=== PATIENT | male | born 1990 | race Caucasian/White ===

== ENCOUNTER 2019-01-17 15:04 | Emergency (ER) | payer SELFPAY ==
[2019-01-17 16:06] VITALS: BP 128/67; PULSE 78
[2019-01-17] MEDS ORDERED: Bacitracin Oint 1 GM U/D Packet TOP ONE (16:36)
[2019-01-17] MEDS ORDERED: Lidocaine 1% 30 ML SDV INJECT ONE (16:36)
--- NOTE | 2019-01-17 16:58 | EDM.PDOCBH ---
Scribed by Yamilet Page 01/17/19 0427 for Zeb Ravi PA ED HPI GENERAL MEDICAL PROBLEM - General Chief Complaint: Behavioral/Psych Stated Complaint: CUT LEFT WRIST Time Seen by Provider: 01/17/19 16:30 Source of Information: Reports: Patient, RN, RN Notes Reviewed History Limitations: Reports: No Limitations - History of Present Illness INITIAL COMMENTS - FREE TEXT/NARRATIVE: Patient presents to ER with the complaint of feeling down and unwanted. He feels he is being ignore and treated like crap. He also states he is being ridiculed and his past thrown in his face. All of his activities are wrong. This is his fourth year anniversary. He used pot yesterday and meth 3 days ago. He took a utility knife and sliced his left wrist (30 minutes prior to arrival) . Onset: Today Duration: Getting Worse Location: Reports: Generalized Severity: Moderate Improves with: Reports: None Worsens with: Reports: None Associated Symptoms: Reports: No Other Symptoms - Related Data Allergies Allergy/AdvReac Type Severity Reaction Status Date / Time No Known Allergies Allergy Verified 01/17/19 17:25 Home Meds: Home Meds cloNIDine [Catapres] 0.1 mg PO BID 01/17/19 [History] Past Medical History - Past Health History Medical/Surgical History: Denies Medical/Surgical History HEENT History: Reports: Other (See Below) Other HEENT History: Pt reports surgery to nose for fracture. Psychiatric History: Reports: ADHD, Anxiety, Depression, Suicide Attempt Social & Family History - Family History Family Medical History: Noncontributory - Tobacco Use Smoking Status *Q: Current Every Day Smoker Years of Tobacco use: 10 Packs/Tins Daily: 0.5 - Caffeine Use Caffeine Use: Reports: Soda Caffeine Use Comment: 12 pack daily. - Recreational Drug Use Recreational Drug Use: Yes Recreational Drug Type: Reports: Marijuana/Hashish, Methamphetamine - Living Situation & Occupation Living situation: Reports: with Significant Other Occupation: Employed ED ROS GENERAL - Review of Systems Review Of Systems: ROS reveals no pertinent complaints other than HPI. ED EXAM, BEHAVIORAL HEALTH - Physical Exam Exam: See Below Exam Limited By: No Limitations General Appearance: Alert, WD/WN, No Apparent Distress Eye Exam: Bilateral Eye: EOMI, Normal Inspection, PERRL Ears: Normal External Exam, Normal Canal, Hearing Grossly Normal, Normal TMs Nose: Normal Inspection, Normal Mucosa, No Blood Throat/Mouth: Normal Inspection Head: Atraumatic, Normocephalic Neck: Normal Inspection, Supple, Non-Tender, Full Range of Motion Respiratory/Chest: No Respiratory Distress, Lungs Clear, Normal Breath Sounds, No Accessory Muscle Use, Chest Non-Tender Cardiovascular: Normal Peripheral Pulses, Regular Rate, Rhythm, No Edema, No Gallop, No JVD, No Murmur, No Rub GI/Abdominal: Normal Bowel Sounds, Soft, Non-Tender, No Organomegaly, No Distention, No Abnormal Bruit, No Mass (Male) Exam: Deferred Rectal (Males) Exam: Deferred Back Exam: Normal Inspection, Full Range of Motion, NT Extremities: Other (See skin below) Neurological: Alert Skin Exam: Other (left wrist laceratgion 2.0cm in length. ) ED LACERATION PROCEDURES - Laceration/Wound Repair Left Wrist Lac/wound length in cm: 2.0 Appearance: Subcutaneous Distal NVT: Neuro & Vascular Intact Anesthetic Type: Local Local Anesthesia - Lidocaine (Xylocaine): 1% Plain Local Anesthetic Volume: 3cc Skin Prep: Chlorhexidine (Hibiciens), Saline Exploration/Debridement/Repair: Wound Explored, In a Bloodless Field, Explored to Base, No Foreign Material Found Closed with: Sutures Suture Size: 4-0 # of Sutures: 8 Suture Type: Prolene, Interrupted, Simple Drain Placement: No Sterile Dressing Applied: Nurse Tetanus Status Addressed: Yes Complications: No COURSE, BEHAVIORAL HEALTH COMP - Course Vital Signs: Last Vital Signs Temp 37.1 C 01/17/19 15:45 Pulse 78 01/17/19 15:45 Resp 18 01/17/19 15:45 BP 128/67 01/17/19 15:45 Pulse Ox 97 01/17/19 15:45 Orders, Labs, Meds: Active Orders 24 hr Category Date Time Status DRUG SCREEN URINE BIORAD [URCHEM] Stat Lab 01/17/19 16:25 Ordered UA RFX THI AND CULT IF INDIC [URIN] Urgent Lab 01/17/19 16:25 Ordered Laboratory Tests 01/17/19 01/17/19 01/17/19 Range/Units 16:44 16:44 16:44 WBC 11.8 H (5.0-10.0) 10^3/uL RBC 5.26 (4.6-6.2) 10^6/uL Hgb 16.0 (14.0-18.0) g/dL Hct 46.5 (40.0-54.0) % MCV 88.4 (80-100) fL MCH 30.4 (27.0-34.0) pg MCHC 34.4 (33.0-35.0) g/dL Plt Count 266 (150-450) 10^3/uL Neut % (Auto) 62.5 (42.2-75.2) % Lymph % (Auto) 26.5 (20.5-50.1) % Finney % (Auto) 8.7 H (2-8) % Eos % (Auto) 2.0 (1.0-3.0) % Baso % (Auto) 0.3 (0.0-1.0) % Sodium 138 (135-145) mmol/L Potassium 3.4 L (3.6-5.0) mmol/L Chloride 102 (101-111) mmol/L Carbon Dioxide 22.0 (21.0-31.0) mmol/L Anion Gap 17.4 BUN 19 H (7-18) mg/dL Creatinine 1.0 (0.6-1.3) mg/dL Est Cr Clr Drug Dosing 124.32 mL/min Estimated GFR (MDRD) > 60 BUN/Creatinine Ratio 19.00 Glucose 81 (74-105) mg/dL Calcium 9.5 (8.4-10.2) mg/dl Total Bilirubin 1.2 H (0.2-1.0) mg/dL AST 22 (10-42) IU/L ALT 13 (10-60) IU/L Alkaline Phosphatase 66 (42-121) IU/L Total Protein 8.0 (6.7-8.2) g/dl Albumin 4.9 (3.2-5.5) g/dl Globulin 3.1 Albumin/Globulin Ratio 1.58 Salicylates < 4 mg/dL Acetaminophen < 10 ug/mL Ethyl Alcohol < 5 mg/dL Medications Discontinued Medications Generic Name Dose Route Start Last Admin Trade Name Freq PRN Reason Stop Dose Admin Bacitracin 1 dose 01/17/19 16:36 01/17/19 16:41 Bacitracin Oint 1 Gm TOP 01/17/19 16:37 1 dose ONETIME ONE Administration Lidocaine HCl 30 ml 10/31/19 16:36 01/17/19 16:41 Xylocaine-Mpf 1% INJECT 01/17/19 16:37 30 ml ONETIME ONE Administration Departure - Departure Time of Disposition: 17:59 Disposition: Home, Self-Care 01 Condition: Fair Clinical Impression: Self-harm, Depressive disorder - Discharge Information *PRESCRIPTION DRUG MONITORING PROGRAM REVIEWED*: Not Applicable *COPY OF PRESCRIPTION DRUG MONITORING REPORT IN PATIENT KEREN: Not Applicable Instructions: Suicidal Feelings: How to Help Yourself Forms: ED Department Discharge Care Plan Goals: The patient was advised of the examination and lab results during the visit. The patient was encourage to follow-up with the human services center tomorrow according to their safety plan. The patient's laceration was sutured with good approximation of the wound margins. The patient should keep the wound clean and dry over the next 48 hours. The patient should have the sutures removed in 10 - 14 days. If the patient has any additional symptoms or concerns, the patient should either return to the emergency department or visit his primary care facility. - My Orders Last 24 Hours: My Active Orders 01/17/19 16:25 DRUG SCREEN URINE BIORAD [URCHEM] Stat UA RFX THI AND CULT IF INDIC [URIN] Urgent - Assessment/Plan Last 24 Hours: My Active Orders 01/17/19 16:25 DRUG SCREEN URINE BIORAD [URCHEM] Stat UA RFX THI AND CULT IF INDIC [URIN] Urgent I have read and agree with the documentation that has been completed regarding this visit. By signing this record, I attest that the documentation was completed in my physical presence and is an accurate record of the encounter.
[2019-01-17 17:14] LABS: ANION GAP 17.4; CHLORIDE,CL 102 mmol/L (101-111); SODIUM,NA 138 mmol/L (135-145)
[2019-01-17 17:15] LABS: ACETAMINOPHEN < 10 ug/mL
== END 2019-01-17 18:12 | disposition home or self-care (01) ==
LOC: DL.ED 15:04
DX: S61.512A Laceration without foreign body of left wrist, initial encounter (principal); F17.210 Nicotine dependence, cigarettes, uncomplicated
CPT/HCPCS: 12001; 36415; 80053; 80320; 80329; 85025; 99285; J2001; 12042; G0480

== ENCOUNTER 2019-10-01 12:33 | Emergency (ER) | payer SELFPAY ==
[2019-10-01 12:45] VITALS: BP 134/71; PULSE 89
--- NOTE | 2019-10-01 13:13 | EDM.PDOC ---
ED HPI GENERAL MEDICAL PROBLEM - General Chief Complaint: Lower Extremity Injury/Pain Stated Complaint: RIGHT FOOT INJURY Time Seen by Provider: 10/01/19 13:02 Source of Information: Reports: Patient History Limitations: Reports: No Limitations - History of Present Illness INITIAL COMMENTS - FREE TEXT/NARRATIVE: This 29 yo male patient reports to the ED due to right foot and 5th toe pain. The patient reports he dropped a 4x8 piece of plywood on his foot yesterday while he was replacing a roof. The patient reports increased pain over his 3rd - 5th tarsal bones as well as over his 5th toe. Onset Date: 09/30/19 Duration: Constant Location: Reports: Lower Extremity, Right Quality: Reports: Ache, Dull Severity: Moderate Improves with: Reports: Rest Worsens with: Reports: Movement Context: Reports: Activity Associated Symptoms: Reports: No Other Symptoms Right Foot Pain Score (Numeric/FACES): 6 - Related Data Allergies Allergy/AdvReac Type Severity Reaction Status Date / Time No Known Allergies Allergy Verified 10/01/19 12:44 Home Meds: Home Meds . [No Known Home Meds] 10/01/19 [History] Past Medical History - Past Health History Medical/Surgical History: Denies Medical/Surgical History HEENT History: Reports: Other (See Below) Other HEENT History: Pt reports surgery to nose for fracture. Psychiatric History: Reports: ADHD, Anxiety, Depression, Suicide Attempt Social & Family History - Family History Family Medical History: Noncontributory - Caffeine Use Caffeine Use: Reports: Soda Caffeine Use Comment: 12 pack daily. - Living Situation & Occupation Living situation: Reports: with Significant Other Occupation: Employed Review of Systems - Review of Systems Review Of Systems: Comprehensive ROS is negative, except as noted in HPI. ED EXAM, GENERAL - Physical Exam Exam: See Below Exam Limited By: No Limitations General Appearance: Alert, WD/WN, Mild Distress Eye Exam: Bilateral Eye: EOMI, Normal Inspection, PERRL Ears: Normal External Exam, Normal Canal, Hearing Grossly Normal, Normal TMs Nose: Normal Inspection, Normal Mucosa, No Blood Throat/Mouth: Normal Inspection, Normal Lips, Normal Teeth, Normal Gums, Normal Oropharynx, Normal Voice, No Airway Compromise Head: Atraumatic, Normocephalic Neck: Normal Inspection, Supple, Non-Tender, Full Range of Motion Respiratory/Chest: No Respiratory Distress, Lungs Clear, Normal Breath Sounds, No Accessory Muscle Use, Chest Non-Tender Cardiovascular: Normal Peripheral Pulses, Regular Rate, Rhythm, No Edema, No Gallop, No JVD, No Murmur, No Rub GI/Abdominal: Normal Bowel Sounds, Soft, Non-Tender, No Organomegaly, No Distention, No Abnormal Bruit, No Mass (Male) Exam: Deferred Rectal (Males) Exam: Deferred Back Exam: Normal Inspection, Full Range of Motion, NT Extremities: Leg Pain (right foot pain and redness over 3th-5th) Neurological: Alert, Oriented, CN II-XII Intact, Normal Cognition, Normal Gait, Normal Reflexes, No Motor/Sensory Deficits Psychiatric: Normal Affect, Normal Mood Skin Exam: Warm, Dry, Intact, Normal Color, No Rash Lymphatic: No Adenopathy Course - Vital Signs Last Recorded V/S: Last Vital Signs Temp 36.8 C 10/01/19 12:44 Pulse 89 10/01/19 12:44 Resp 18 10/01/19 12:44 BP 134/71 10/01/19 12:44 Pulse Ox 97 10/01/19 12:44 Departure - Departure Time of Disposition: 14:27 Disposition: Home, Self-Care 01 Condition: Fair Clinical Impression: Right foot strain Qualifiers: Encounter type: initial encounter Qualified Code(s): S96.911A - Strain of unspecified muscle and tendon at ankle and foot level, right foot, initial encounter Contusion of right foot including toes Qualifiers: Encounter type: initial encounter Qualified Code(s): S90.31XA - Contusion of right foot, initial encounter; S90.121A - Contusion of right lesser toe(s) without damage to nail, initial encounter - Discharge Information *PRESCRIPTION DRUG MONITORING PROGRAM REVIEWED*: Not Applicable *COPY OF PRESCRIPTION DRUG MONITORING REPORT IN PATIENT KEREN: Not Applicable Instructions: Contusion, [id number] Forms: ED Department Discharge Care Plan Goals: The patient was advised of the examination and x-ray results during the visit. The patient was encouraged to rest, ice and elevate the extremity. The patient may take Tylenol or ibuprofen as directed for temporary symptom relief. The patient's foot was wrapped with an DOMO wrap for compression and stabilization. If the patient has any additional symptoms or concerns, the patient should either return to the emergency department or visit his primary care facility. Sepsis Event Note (ED) - Evaluation Sepsis Screening Result: No Definite Risk - Focused Exam Vital Signs: Vital Signs Temp Pulse Resp BP Pulse Ox 10/01/19 12:44 36.8 C 89 18 134/71 97
--- NOTE | 2019-10-01 14:10 | CR ---
EXAMINATION: Foot Comp Min 3V Rt SEX: Male AGE: 29 years CLINICAL HISTORY: 29-year-old male complaining of pain and swelling (top of right foot and fifth toe). INTERPRETATION: 1. Soft tissue swelling (STS) lateral aspect right forefoot. 2. No underlying fracture or joint dislocation. 3. No subcutaneous emphysema (air) or foreign bodies. No inflammatory periostitis. CONCLUSION: Soft tissue swelling. No current signs of infection, fracture or dislocation right forefoot.
== END 2019-10-01 14:43 | disposition home or self-care (01) ==
LOC: DL.ED 12:33
DX: S96.911A Strain of unspecified muscle and tendon at ankle and foot level, right foot, initial encounter (principal); S90.121A Contusion of right lesser toe(s) without damage to nail, initial encounter; S90.31XA Contusion of right foot, initial encounter; W20.8XXA Other cause of strike by thrown, projected or falling object, initial encounter
CPT/HCPCS: 73630-RT; 99283

== ENCOUNTER 2021-03-09 17:36 | Emergency (ER) | payer SELFPAY ==
[2021-03-09 17:47] VITALS: BP 142/96; PULSE 78
[2021-03-09] MEDS ORDERED: Lidocaine 2% Viscous Solution 15 ML Cup PO ONE (17:53)
--- NOTE | 2021-03-09 18:06 | EDM.PDOC ---
ED HPI GENERAL MEDICAL PROBLEM - General Chief Complaint: General Stated Complaint: ABCESS IN MOUTH Time Seen by Provider: 03/09/21 17:50 Source of Information: Reports: Patient History Limitations: Reports: No Limitations - History of Present Illness INITIAL COMMENTS - FREE TEXT/NARRATIVE: This 30 yo male patient reports to the ED with pain and swelling to his right upper front teeth. The patient reports he tried to get into the dentist, but can not get an appointment until March 25. 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 [No Known Home Meds] 10/01/19 [History] Past Medical History - Past Health History Medical/Surgical History: Denies Medical/Surgical History HEENT History: Reports: Other (See Below) Other HEENT History: Pt reports surgery to nose for fracture. Cardiovascular History: Reports: Hypertension Respiratory History: Reports: None Gastrointestinal History: Reports: None Genitourinary History: Reports: None Musculoskeletal History: Reports: None Neurological History: Reports: None Psychiatric History: Reports: ADHD, Anxiety, Depression, Suicide Attempt Endocrine/Metabolic History: Reports: None Hematologic History: Reports: None Immunologic History: Reports: None Oncologic (Cancer) History: Reports: None Dermatologic History: Reports: None - Infectious Disease History Infectious Disease History: Reports: None Social & Family History - Family History Family Medical History: No Pertinent Family History - Tobacco Use Tobacco Use Status *Q: Current Every Day Tobacco User Years of Tobacco use: 10 Packs/Tins Daily: 1 - Caffeine Use Caffeine Use: Reports: Coffee Caffeine Use Comment: 12 pack daily. - Recreational Drug Use Recreational Drug Use: Yes Drug Use in Last 12 Months: Yes Recreational Drug Type: Reports: Marijuana/Hashish - Living Situation & Occupation Living situation: Reports: with Significant Other Occupation: Employed ED ROS GENERAL - Review of Systems Review Of Systems: Comprehensive ROS is negative, except as noted in HPI. ED EXAM, GENERAL - Physical Exam Exam: See Below Exam Limited By: No Limitations General Appearance: Alert, WD/WN, Moderate Distress Eye Exam: Bilateral Eye: EOMI, Normal Inspection, PERRL Ears: Normal External Exam, Normal Canal, Hearing Grossly Normal, Normal TMs Nose: Normal Inspection, Normal Mucosa, No Blood Throat/Mouth: Normal Lips, Normal Oropharynx, Normal Voice, No Airway Compromise, Other (Dental caries with erythema above #10/#11) Head: Atraumatic, Normocephalic Neck: Normal Inspection, Supple, Non-Tender, Full Range of Motion Respiratory/Chest: No Respiratory Distress, Lungs Clear, Normal Breath Sounds, No Accessory Muscle Use, Chest Non-Tender Cardiovascular: Normal Peripheral Pulses, Regular Rate, Rhythm, No Edema, No Gallop, No JVD, No Murmur, No Rub GI/Abdominal: Normal Bowel Sounds, Soft, Non-Tender, No Organomegaly, No Distention, No Abnormal Bruit, No Mass (Male) Exam: Deferred Rectal (Males) Exam: Deferred Back Exam: Normal Inspection, Full Range of Motion, NT Extremities: Normal Inspection, Normal Range of Motion, Non-Tender, Normal Capillary Refill, No Pedal Edema Neurological: Alert, Oriented, CN II-XII Intact, Normal Cognition, Normal Gait, Normal Reflexes, No Motor/Sensory Deficits Psychiatric: Normal Affect, Normal Mood Skin Exam: Warm, Dry, Intact, Normal Color, No Rash Lymphatic: No Adenopathy Course - Vital Signs Last Recorded V/S: Last Vital Signs Temp 98.9 F 03/09/21 17:44 Pulse 78 03/09/21 17:44 Resp 18 03/09/21 17:44 BP 142/96 H 03/09/21 17:44 Pulse Ox 99 03/09/21 17:44 - Orders/Labs/Meds Meds: Medications Discontinued Medications Generic Name Dose Route Start Last Admin Trade Name Freq PRN Reason Stop Dose Admin Lidocaine HCl 15 ml 03/09/21 17:53 Lidocaine 2% Viscous Solution 15 Ml Cup PO 03/09/21 17:54 ONETIME ONE Departure - Departure Time of Disposition: 18:07 Disposition: Home, Self-Care 01 Condition: Fair Clinical Impression: Dental abscess - Discharge Information *PRESCRIPTION DRUG MONITORING PROGRAM REVIEWED*: Not Applicable *COPY OF PRESCRIPTION DRUG MONITORING REPORT IN PATIENT KEREN: Not Applicable Instructions: Dental Abscess, [id number] Care Plan Goals: The patient was advised of the examination results during the visit. The patient was given a dose of Viscous Lidocaine while in the ED. The patient was also given a script for Clindamycin (300 mg) to take 1 by mouth 4 times per day for 10 days and Viscous Lidocaine 2% #100 mL to use 5-10 mL on a cottonball applied to area every 6 hours as needed. The patient was encouraged to follow-up with a dentist as soon as possible for continued evaluation and further management. If the patient has any additional symptoms or concerns, the patient should either follow-up with his primary care facility or return to the emergency department. Sepsis Event Note (ED) - Evaluation Sepsis Screening Result: No Definite Risk - Focused Exam Vital Signs: Vital Signs Temp Pulse Resp BP Pulse Ox 03/09/21 17:44 98.9 F 78 18 142/96 H 99
== END 2021-03-09 18:12 | disposition home or self-care (01) ==
LOC: DL.ED 17:36
DX: K04.7 Periapical abscess without sinus (principal); I10 Essential (primary) hypertension; Z72.0 Tobacco use
CPT/HCPCS: 99282; A9270

== ENCOUNTER 2021-03-13 19:36 | Emergency (ER) | payer SELFPAY ==
[2021-03-13] MEDS ORDERED: Amoxicillin 500 MG Cap PO ONE (19:37)
[2021-03-13] MEDS ORDERED: metroNIDAZOLE 250 MG Tab PO ONE (19:37)
[2021-03-13 19:50] VITALS: BP 145/93; PULSE 70
[2021-03-13] MEDS ORDERED: cefTRIAXone 2 GM in Sodium Chloride 0.9% 100 ML IV ONE (20:37)
[2021-03-13] MEDS ORDERED: Ketorolac 30 MG/ML SDV IVPUSH ONE (20:39)
--- NOTE | 2021-03-13 20:42 | EDM.PDOC ---
ED HPI GENERAL MEDICAL PROBLEM - General Chief Complaint: ENT Problem Stated Complaint: TOOTH PAIN Time Seen by Provider: 03/13/21 22:22 Source of Information: Reports: Patient History Limitations: Reports: No Limitations - History of Present Illness INITIAL COMMENTS - FREE TEXT/NARRATIVE: ED with c/o worsening dental infection. Was seen on 03/09 started on Clindamycin 3900mg QID for abscess. Reports increased swelling and now pressure into sinuses and nose. Last ibuprofen at 1300. Dental appointment for . Just not feeling well. - Related Data Allergies Allergy/AdvReac Type Severity Reaction Status Date / Time No Known Allergies Allergy Verified 03/09/21 17:44 Home Meds: Home Meds . [No Known Home Meds] 10/01/19 [History] Past Medical History - Past Health History Medical/Surgical History: Denies Medical/Surgical History HEENT History: Reports: Other (See Below) Other HEENT History: Pt reports surgery to nose for fracture. Cardiovascular History: Reports: Hypertension Respiratory History: Reports: None Gastrointestinal History: Reports: None Genitourinary History: Reports: None Musculoskeletal History: Reports: None Neurological History: Reports: None Psychiatric History: Reports: ADHD, Anxiety, Depression, Suicide Attempt Endocrine/Metabolic History: Reports: None Hematologic History: Reports: None Immunologic History: Reports: None Oncologic (Cancer) History: Reports: None Dermatologic History: Reports: None - Infectious Disease History Infectious Disease History: Reports: None Social & Family History - Family History Family Medical History: No Pertinent Family History - Tobacco Use Tobacco Use Status *Q: Current Every Day Tobacco User Years of Tobacco use: 10 Packs/Tins Daily: 0.7 - Caffeine Use Caffeine Use: Reports: Coffee Caffeine Use Comment: 12 pack daily. - Living Situation & Occupation Living situation: Reports: with Significant Other Occupation: Employed ED ROS ENT - Review of Systems Review Of Systems: See Below Constitutional: Reports: Malaise HEENT: Reports: Nose Pain, Other Respiratory: Reports: No Symptoms Cardiovascular: Reports: No Symptoms GI/Abdominal: Reports: No Symptoms : Reports: No Symptoms Musculoskeletal: Reports: No Symptoms Skin: Reports: No Symptoms Neurological: Reports: No Symptoms ED EXAM, ENT - Physical Exam Exam: See Below Exam Limited By: No Limitations General Appearance: Alert, Mild Distress Ears: Hearing Grossly Normal Nose: Nasal Swelling (lower ), Nasal Tenderness Mouth/Throat: Dental Abcess, Dental Pain, Dental Tenderness, Gum Swelling, Other (dental pain frontal with swelling and abcess, anterior gum above teeth abscess with mild swelling posterior frontal teeth) Head: Atraumatic, Normocephalic Neck: Normal Inspection Respiratory/Chest: No Respiratory Distress, Lungs Clear, Normal Breath Sounds Cardiovascular: Normal Peripheral Pulses, Regular Rate, Rhythm GI/Abdominal: Normal Bowel Sounds, Soft Extremities: Normal Inspection Neurological: Alert, Oriented Psychiatric: Normal Affect Skin: Warm, Dry, Intact, Normal Color Course - Vital Signs Last Recorded V/S: Last Vital Signs Temp 98.6 F 03/13/21 19:47 Pulse 70 03/13/21 19:47 Resp 18 03/13/21 19:47 BP 145/93 H 03/13/21 19:47 Pulse Ox 98 03/13/21 19:47 - Orders/Labs/Meds Orders: Active Orders 24 hr Category Date Time Status CULTURE BLOOD [BC] Stat Lab 03/13/21 20:55 Received Labs: Laboratory Tests 03/13/21 03/13/21 03/13/21 Range/Units 20:55 20:55 20:55 WBC 16.3 H (5.0-10.0) 10^3/uL RBC 5.14 (4.6-6.2) 10^6/uL Hgb 15.8 (14.0-18.0) g/dL Hct 47.3 (40.0-54.0) % MCV 92.0 D (80-100) fL MCH 30.7 (27.0-34.0) pg MCHC 33.4 (33.0-35.0) g/dL Plt Count 272 (150-450) 10^3/uL Neut % (Auto) 68.8 (42.2-75.2) % Lymph % (Auto) 20.9 (20.5-50.1) % Ellis % (Auto) 7.4 (2-8) % Eos % (Auto) 2.6 (1.0-3.0) % Baso % (Auto) 0.3 (0.0-1.0) % Sodium 141 (136-145) mmol/L Potassium 4.2 (3.5-5.1) mmol/L Chloride 100 (98-107) mmol/L Carbon Dioxide 29 (21-32) mmol/L Anion Gap 16.2 H (7-13) mEq/L BUN 10 (7-18) mg/dL Creatinine 1.21 (0.70-1.30) mg/dL Est Cr Clr Drug Dosing 103.66 mL/min Estimated GFR (MDRD) > 60 BUN/Creatinine Ratio 8.3 (No establ ref range) Glucose 94 (70-99) mg/dL Lactic Acid 1.6 (0.4-2.0) mmol/L Calcium 9.2 (8.5-10.1) mg/dL Total Bilirubin 0.3 (0.2-1.0) mg/dL AST 16 (15-37) U/L ALT 17 (16-63) U/L Alkaline Phosphatase 85 (46-116) U/L Total Protein 7.4 (6.4-8.2) g/dL Albumin 4.0 (3.4-5.0) g/dL Globulin 3.4 Albumin/Globulin Ratio 1.2 Meds: Medications Discontinued Medications Generic Name Dose Route Start Last Admin Trade Name Freq PRN Reason Stop Dose Admin Ceftriaxone Sodium 2 gm/ 100 mls @ 200 mls/hr 03/13/21 20:37 03/13/21 20:59 Sodium Chloride IV 03/13/21 21:06 200 mls/hr ONETIME ONE Administration Sodium Chloride 1,000 mls @ 999 mls/hr 03/13/21 20:44 03/13/21 21:28 Normal Saline IV 03/13/21 21:44 999 mls/hr .BOLUS ONE Administration Iopamidol 100 ml 03/13/21 20:44 03/13/21 21:16 Iopamidol 612 Mg/Ml 100 Ml Bottle IVPUSH 03/13/21 20:45 100 ml ONETIME ONE Administration Ketorolac Tromethamine 30 mg 03/13/21 20:39 03/13/21 20:55 Ketorolac 30 Mg/Ml Sdv IVPUSH 03/13/21 20:40 30 mg ONETIME ONE Administration Departure - Departure Time of Disposition: 22:11 Disposition: Home, Self-Care 01 Condition: Good Clinical Impression: Dental caries, Dental abscess - Discharge Information *PRESCRIPTION DRUG MONITORING PROGRAM REVIEWED*: No *COPY OF PRESCRIPTION DRUG MONITORING REPORT IN PATIENT KEREN: No Instructions: Dental Abscess, [id number] Forms: ED Department Discharge Care Plan Goals: Stop clindamycin amoxicillin 500mg one three times daily Flagyl 500mg one three times daily follow up with dentist next week alternate tylenol 500mg and ibuprofen 600mg every 4 hours as needed for discomfort follow up if symptoms worsen Sepsis Event Note (ED) - Evaluation Sepsis Screening Result: No Definite Risk - Focused Exam Vital Signs: Vital Signs Temp Pulse Resp BP Pulse Ox 03/13/21 19:47 98.6 F 70 18 145/93 H 98 - My Orders Last 24 Hours: My Active Orders 03/13/21 20:55 CULTURE BLOOD [BC] Stat - Assessment/Plan Last 24 Hours: My Active Orders 03/13/21 20:55 CULTURE BLOOD [BC] Stat
[2021-03-13] MEDS ORDERED: Iopamidol 612 MG/ML 100 ML Bottle IVPUSH ONE (20:44)
[2021-03-13] MEDS ORDERED: Sodium Chloride 0.9% 1,000 ML IV ONE (20:44)
[2021-03-13 21:32] LABS: ANION GAP 16.2 mEq/L (7-13); CHLORIDE,CL 100 mmol/L (98-107); SODIUM,NA 141 mmol/L (136-145)
--- NOTE | 2021-03-13 21:58 | CT ---
PROCEDURE INFORMATION: Exam: CT Maxillofacial With Contrast Exam date and time: 03/13/2021 9:30 PM Age: 30 years old Clinical indication: Other: Pain left front upper teeth---wbc 16.5; Additional info: Abscess facial swelling pressure TECHNIQUE: Imaging protocol: Computed tomography images of the face with intravenous contrast. Radiation optimization: All CT scans at this facility use at least one of these dose optimization techniques: automated exposure control; mA and/or kV adjustment per patient size (includes targeted exams where dose is matched to clinical indication); or iterative reconstruction. Contrast material: [id number]; Contrast volume: 100 ml; Contrast route: INTRAVENOUS (IV); COMPARISON: No relevant prior studies available. FINDINGS: Orbital cavity: Orbits are normal. Globes are unremarkable. Bones/joints: No acute fracture. Paranasal sinuses: Visualized paranasal sinuses are unremarkable. No air-fluid levels. Soft tissues: Soft tissue abscess overlying the left anterior maxilla measuring 21 x 10 x 20 mm (AP x TR x CC). Dental: Periapical lucency in the left paramedian anterior maxilla surrounding the roots of teeth 9 and 10 measuring 13 x 8 mm (series 2, image 27). IMPRESSION: Dental abscess involving the left upper central and lateral incisors with overlying soft tissue abscess.
[2021-03-13] MEDS ORDERED: metroNIDAZOLE 250 MG Tab ONE (22:13)
[2021-03-13] MEDS ORDERED: Amoxicillin 500 MG Cap ONE (22:13)
== END 2021-03-13 22:29 | disposition home or self-care (01) ==
LOC: DL.ED 19:36
DX: K04.7 Periapical abscess without sinus (principal); K02.9 Dental caries, unspecified; I10 Essential (primary) hypertension; Z72.0 Tobacco use
CPT/HCPCS: 36415; 70487; 80053; 83605; 85025; 87040; 96365; 96375; 99283; A9270; J0696; J1885; J7030; Q9967

== ENCOUNTER 2021-07-01 10:46 | Emergency (ER) | payer SELFPAY ==
[2021-07-01 11:29] VITALS: BP 117/74; PULSE 89
[2021-07-01] MEDS ORDERED: methylPREDNISolone Sodium Succinate 125 MG/2 ML SDV IM ONE (11:49)
[2021-07-01] MEDS ORDERED: Acetaminophen 500 MG Tab PO ONE (11:49)
== END 2021-07-01 12:05 | disposition home or self-care (01) ==
LOC: DL.ED 10:46
DX: M54.50 Low back pain, unspecified (principal); Z72.0 Tobacco use
CPT/HCPCS: 96372; 99283; A9270-GY; J2930

== ENCOUNTER 2022-10-31 15:38 | Emergency (ER) | payer MEDICAID ==
[2022-10-31] MEDS: Ketorolac 30 MG/ML SDV IM ONE (16:46)
[2022-10-31] MEDS: Lidocaine 2% with EPINEPHrine 1:200,000 20 ML SDV INJECT ONE (18:07)
[2022-10-31] MEDS: Take Home: Acetaminophen/oxyCODONE 325-5 MG, 5 Tab Pack PO ONE (18:53)
== END 2022-10-31 18:59 | disposition home or self-care (01) ==
LOC: DL.ED 15:38
DX: S81.841A Puncture wound with foreign body, right lower leg, initial encounter (principal); F17.210 Nicotine dependence, cigarettes, uncomplicated; I10 Essential (primary) hypertension; W45.0XXA Nail entering through skin, initial encounter
CPT/HCPCS: 96372; 99282; 99283; A9270-GY; J1885; J3490

== ENCOUNTER 2024-06-24 16:59 | Emergency (ER) | payer MEDICAID ==
[2024-06-24 17:13] VITALS: BP 138/64; PULSE 73
[2024-06-24] MEDS: Proparacaine 0.5% Ophth Soln 15 ML Bottle EYELF ONE (17:22)
[2024-06-24] MEDS: Fluorescein 1 MG Ophth Strip EYELF ONE (17:23)
== END 2024-06-24 17:47 | disposition home or self-care (01) ==
LOC: DL.ED 16:59
DX: S05.02XA Injury of conjunctiva and corneal abrasion without foreign body, left eye, initial encounter (principal); I10 Essential (primary) hypertension; X58.XXXA Exposure to other specified factors, initial encounter
CPT/HCPCS: 99283

== ENCOUNTER 2024-12-18 21:47 | Emergency (ER) | payer SELFPAY ==
[2024-12-18 22:08] VITALS: BP 153/109; PULSE 59
[2024-12-18] MEDS: Take Home: Acetaminophen/HYDROcodone 325-5 MG, 5 Tab Pack PO ONE (23:16)
== END 2024-12-18 23:19 | disposition home or self-care (01) ==
LOC: DL.ED 21:47
DX: K03.81 Cracked tooth (principal); K04.7 Periapical abscess without sinus; I10 Essential (primary) hypertension
CPT/HCPCS: 99282; A9270